=== PATIENT | female | born 1990 | race Caucasian/White ===

== ENCOUNTER 2018-05-03 10:58 | Emergency (ER) | payer SELFPAY ==
[2018-05-03 11:06] VITALS: BP 120/63; PULSE 92; TEMP 98.5; BMI 32.1
--- NOTE | 2018-05-03 11:38 | PDOC ---
History of Present Illness - General Chief Complaint: Chest Pain Stated Complaint: CHEST PAIN Time Seen by Provider: 05/03/18 11:36 History Source: Patient - History of Present Illness Presenting Symptoms: Chest Pain Timing/Duration: reports: intermittent Past History - Past Medical History Allergies/Adverse Reactions: Allergies Allergy/AdvReac Type Severity Reaction Status Date / Time No Known Allergies Allergy Verified 05/03/18 11:06 Home Medications: Ambulatory Orders Phentermine HCl 15 mg PO DAILY 05/03/18 Semaglutide [Ozempic] 1 mg SQ WEEKLY 05/03/18 COPD: No Other medical history: taking weight loss pills - Suicide/Smoking/Psychosocial Hx Smoking History: Never smoked Information on smoking cessation initiated: No Hx Alcohol Use: No Drug/Substance Use Hx: No Review of Systems - Review of Systems Constitutional: No: Fever Respiratory: No: Cough, Shortness of Breath Cardiac (ROS): Yes: Chest Pain. No: Lightheadedness, Palpitations, Syncope *Physical Exam - Vital Signs Last Vital Signs Temp Pulse Resp BP Pulse Ox 98.5 F 92 H 17 120/63 100 05/03/18 11:04 05/03/18 11:04 05/03/18 11:04 05/03/18 11:04 05/03/18 11:04 - Physical Exam General Appearance: Yes: Appropriately Dressed. No: Apparent Distress HEENT: positive: Normal Voice Neck: positive: Supple Respiratory/Chest: positive: Lungs Clear, Normal Breath Sounds. negative: Respiratory Distress Cardiovascular: positive: Regular Rate, S1, S2 Gastrointestinal/Abdominal: positive: Soft. negative: Tender Extremity: positive: Normal Inspection Integumentary: positive: Dry, Warm Neurologic: positive: Fully Oriented, Alert, Normal Mood/Affect Moderate Sedation - Procedure Monitoring Vital Signs: Procedure Monitoring Vital Signs Temperature 98.5 F 05/03/18 11:04 Pulse Rate 92 H 05/03/18 11:04 Respiratory Rate 17 05/03/18 11:04 Blood Pressure 120/63 05/03/18 11:04 O2 Sat by Pulse Oximetry (%) 100 05/03/18 11:04 ED Treatment Course - ADDITIONAL ORDERS Additional order review: Laboratory Results 05/03/18 12:24 Urine HCG, Qual Negative - RADIOLOGY Radiology Studies Ordered: Category Date Time Status CHEST PA & LAT [RAD] Stat Radiology 05/03/18 11:39 Taken Medical Decision Making - Medical Decision Making 05/03/18 11:37 27-year-old female, no significant history here with chest pain. Patient states for the past 3 days has had intermittent left-sided chest pain that sometimes radiate to the right chest, sharp w/ no worsening/relieving factors. No shortness of breath, diaphoresis, palpitations, leg pain or swelling. States she might have had similar pain in the past that would self resolve. Here in ED because pain worsened this a.m., but has since improved. No recent travel and not currently on control. Denies tobacco or illicit drug use See exam CP No RF for cardiac source and PERCs out -ekg -cxr -anticipate dc w/ pmd f/u as needed 05/03/18 13:16 EKG and chest x-ray unremarkable. Stable for dc w/ PMD f/u as needed *DC/Admit/Observation/Transfer Diagnosis at time of Disposition: Chest pain Qualifiers: Chest pain type: unspecified Qualified Code(s): R07.9 - Chest pain, unspecified - Discharge Dispostion Disposition: HOME Condition at time of disposition: Good - Referrals - Patient Instructions Additional Instructions: The cause of your chest pain is unclear at this time as your EKG and chest x- ray were normal. If pain persists, take Tylenol and follow-up with your PMD - Post Discharge Activity Forms/Work/School Notes: Back to Work
--- NOTE | 2018-05-04 16:47 | EKG ---
Test Reason : Blood Pressure : / mmHG Vent. Rate : 083 BPM Atrial Rate : 083 BPM P-R Int : 142 ms QRS Dur : 080 ms QT Int : 358 ms P-R-T Axes : 039 051 034 degrees QTc Int : 420 ms SINUS RHYTHM WITH SINUS ARRHYTHMIA WITH OCCASIONAL PREMATURE VENTRICULAR COMPLEXES OTHERWISE NORMAL ECG NO PREVIOUS ECGS AVAILABLE Confirmed by Crista Padilla ([id number]) on 05/04/2018 4:47:31 PM Referred By: Confirmed By:Crista Padilla
== END 2018-05-03 13:20 | disposition home or self-care (01) ==
LOC: JER 10:58
DX: R07.9 Chest pain, unspecified (principal)
CPT/HCPCS: 71046-TC-FY; 84703; 93005; 93010; 99281-25